=== PATIENT | female | born 1995 | race Caucasian/White ===

== ENCOUNTER 2018-03-26 16:43 | Emergency (ER) | payer BC ==
[~2018-03-26 16:43] MED LIST: AMOXICILLIN500 M2 PO; CLINDAMYCIN HC300 MG PO; DIFLUCAN150 MG PO; MEDROL DOSEPAK4 MG PO; PROAIR HFA8.5 GM INH; TESSALON PERLE100 M1 PO
[2018-03-26 16:45] VITALS: BP 122/75
[2018-03-26] MEDS ORDERED: CHLORZOXAZONE500 M2 PO (17:02)
[2018-03-26] MEDS ORDERED: NAPROSYN500 MG PO (17:02)
== END 2018-03-26 18:41 | disposition home or self-care (01) ==
LOC: ED 16:43
DX: S32.039A Unspecified fracture of third lumbar vertebra, initial encounter for closed fracture (principal); S32.029A Unspecified fracture of second lumbar vertebra, initial encounter for closed fracture; R03.0 Elevated blood-pressure reading, without diagnosis of hypertension; X36.1XXA Avalanche, landslide, or mudslide, initial encounter; Y93.23 Activity, snow (alpine) (downhill) skiing, snowboarding, sledding, tobogganing and snow tubing; Y92.89 Other specified places as the place of occurrence of the external cause; Y99.8 Other external cause status